=== PATIENT | male | born 1935 | race Caucasian/White ===

== ENCOUNTER 2019-01-10 03:15 | Emergency (ER) | payer MEDICARE, OTHER, MEDICAID ==
[2019-01-10] MEDS ORDERED: Albuterol/Ipratropium 3.0-0.5 MG/3 ML Neb Soln NEB ONE ×2 (03:38→05:02)
[2019-01-10] MEDS ORDERED: Furosemide 20 MG/2 ML VIAL IV ONE (03:39)
[2019-01-10] MEDS ORDERED: methylPREDNISolone Sodium Succinate 125 MG/2 ML SDV IVPUSH ONE (03:39)
--- NOTE | 2019-01-10 03:46 | EDM.PDOC ---
ED HPI GENERAL MEDICAL PROBLEM - General Chief Complaint: Respiratory Problem Stated Complaint: Dyspnea Time Seen by Provider: 01/10/19 03:30 Source of Information: Reports: Patient, EMS, EMS Notes Reviewed, RN History Limitations: Reports: No Limitations - History of Present Illness INITIAL COMMENTS - FREE TEXT/NARRATIVE: Patient comes in the emergency department with complaints of shortness of breath. Patient is a resident at the local intermediate. Patient does have oxygen concentrator on a normal basis and does need oxygen to help his oxygen saturations level greater than 90. Patient states over the course last 24 hours he's become more short of breath. He does have a history of becoming short of breath with exertion however he became short of breath with rest. He states that he's not been able lie flat because of becoming short of breath. He also states that he does have a productive wet cough. He denies any fever however nursing personnel at the intermediate state that he did have a fever earlier today of 101. She denies any chills, chest pain, dizziness, lightheaded, or nausea vomiting. Patient states that he is short of breath at rest; is unable to lie flat; has needed and increase oxygenation at the intermediate; and has swollen lower extremities. Onset: Gradual Location: Reports: Head Severity: Moderate Improves with: Reports: Immobilization, Other (sitting upright ) Worsens with: Reports: None Associated Symptoms: Reports: Shortness of Breath. Denies: Cough, Diaphoresis, Fever/Chills, Malaise, Nausea/Vomiting, Syncope, Weakness Treatments HEAD OF QUALITY: Reports: Oxygen, See EMS Report - Related Data Allergies Allergy/AdvReac Type Severity Reaction Status Date / Time No Known Allergies Allergy Verified 01/10/19 04:19 ED ROS GENERAL - Review of Systems Review Of Systems: See Below Constitutional: Reports: No Symptoms HEENT: Reports: No Symptoms Respiratory: Reports: Shortness of Breath, Wheezing. Denies: Pleuritic Chest Pain, Cough, Sputum Cardiovascular: Reports: Dyspnea on Exertion, Edema. Denies: Orthopnea, Palpitations Endocrine: Reports: No Symptoms GI/Abdominal: Reports: No Symptoms : Reports: No Symptoms Musculoskeletal: Reports: No Symptoms Skin: Reports: No Symptoms Neurological: Reports: No Symptoms Psychiatric: Reports: No Symptoms Hematologic/Lymphatic: Reports: No Symptoms Immunologic: Reports: No Symptoms ED EXAM, GENERAL - Physical Exam Exam: See Below Exam Limited By: Respiratory Distress General Appearance: Alert, Anxious, Mild Distress Eye Exam: Bilateral Eye: EOMI, PERRL Head: Atraumatic, Normocephalic Neck: Normal Inspection, Supple, Non-Tender, Full Range of Motion Respiratory/Chest: Respiratory Distress, Decreased Breath Sounds (left lower base ), Crackles, Wheezing, Accessory Muscle Use, Other Cardiovascular: Tachycardia GI/Abdominal: Normal Bowel Sounds, Soft, Non-Tender, No Distention Extremities: Pedal Edema, Slow Capillary Refill Neurological: Alert, Oriented Psychiatric: Normal Affect, Normal Mood Skin Exam: Warm, Dry, Intact, Normal Color Course - Vital Signs Last Recorded V/S: Last Vital Signs Temp 37.6 C 01/10/19 03:15 Pulse 105 H 01/10/19 03:15 Resp 32 H 01/10/19 03:15 BP 96/54 L 01/10/19 03:15 Pulse Ox 95 01/10/19 03:15 - Orders/Labs/Meds Orders: Active Orders 24 hr Category Date Time Status Cardiac Monitoring [RC] . DIRECTED Care 01/10/19 03:38 Active RT Aerosol Therapy [RC] ASDIRECTED Care 01/10/19 03:38 Active RT Aerosol Therapy [RC] ASDIRECTED Care 01/10/19 05:02 Ordered Chest 1V Frontal [CR] Stat Exams 01/10/19 03:39 Taken CULTURE BLOOD [BC] Stat Lab 01/10/19 04:15 Received CULTURE BLOOD [BC] Stat Lab 01/10/19 04:21 Received Albuterol/Ipratropium [DuoNeb 3.0-0.5 MG/3 ML] Med 01/10/19 05:02 Once 3 ml NEB ONETIME ONE Blood Culture x2 Reflex Set [OM.PC] Stat Oth 01/10/19 03:44 Ordered Labs: Laboratory Tests 01/10/19 01/10/19 01/10/19 Range/Units 04:15 04:15 04:15 WBC 18.1 H (4.0-10.0) x10^3/uL RBC 4.11 L (4.5-6.0) x10^6/uL Hgb 12.1 L (14.0-18.0) g/dL Hct 38.6 L (40.0-52.0) % MCV 93.9 H (78.0-93.0) fL MCH 29.4 (26.0-32.0) pg MCHC 31.3 L (32.0-36.0) g/dL RDW Coeff of Evan 14.9 (10.0-15.0) % Plt Count 232 (130-400) x10^3/uL Add Manual Diff Yes Neutrophils % (Manual) 86 H (50-80) % Band Neutrophils % 4 (0-6) % Lymphocytes % (Manual) 7 L (25-50) % Monocytes % (Manual) 3 (2-11) % Platelet Estimate Adequate Hypochromasia 1+ slight H Anisocytosis Rare Macrocytosis 1+ slight H Ovalocytes Rare Sodium 139 (136-145) mmol/L Potassium 4.6 (3.5-5.1) mmol/L Chloride 99 (98-107) mmol/L Carbon Dioxide 33 H (21-32) mmol/L Anion Gap 11.6 (10-20) mmol/L BUN 17 (7-18) mg/dL Creatinine 1.0 (0.70-1.30) mg/dL Est Cr Clr Drug Dosing TNP Estimated GFR (MDRD) > 60 Glucose 119 H (74-106) mg/dL Lactic Acid 1.1 (0.4-2.0) mmol/L Calcium 9.2 (8.5-10.1) mg/dL Corrected Calcium 10.32 H (8.5-10.1) mg/dL Total Bilirubin 1.0 (0.2-1.0) mg/dL AST 20 (15-37) U/L ALT 18 (16-63) U/L Alkaline Phosphatase 152 H (46-116) U/L Troponin I < 0.017 (<=0.056) ng/mL NT-Pro-B Natriuret Pep 3018 H (<=450) pg/mL Total Protein 6.8 (6.4-8.2) g/dL Albumin 2.6 L (3.4-5.0) g/dL Globulin 4.2 Albumin/Globulin Ratio 0.62 Meds: Medications Discontinued Medications Generic Name Dose Route Start Last Admin Trade Name Freq PRN Reason Stop Dose Admin Albuterol/Ipratropium 3 ml 01/10/19 03:38 01/10/19 03:50 Duoneb 3.0-0.5 Mg/3 Ml NEB 04/06/19 03:39 3 ml ONETIME ONE Administration Ceftriaxone Sodium 1 gm/ 0 gm 01/10/19 04:39 Lidocaine HCl 2.1 ml IM 01/10/19 04:40 ONETIME ONE Furosemide 20 mg 01/10/19 03:39 01/10/19 03:50 Lasix IV 01/10/19 03:40 20 mg ONETIME ONE Administration Methylprednisolone Sodium Succinate 125 mg 01/10/19 03:39 01/10/19 03:50 Solu-Medrol IVPUSH 01/10/19 03:40 125 mg ONETIME ONE Administration Departure - Departure Time of Disposition: 04:55 Disposition: DC/Tfer to Acute Hospital 02 Condition: Good Clinical Impression: SOB (shortness of breath) CHF (congestive heart failure) Qualifiers: Heart failure type: unspecified Heart failure chronicity: acute Qualified Code( s): I50.9 - Heart failure, unspecified Pneumothorax Qualifiers: Pneumothorax type: unspecified pneumothorax Qualified Code(s): J93.9 - Pneumothorax, unspecified - Discharge Information *PRESCRIPTION DRUG MONITORING PROGRAM REVIEWED*: Not Applicable *COPY OF PRESCRIPTION DRUG MONITORING REPORT IN PATIENT [place]: Not Applicable Referrals: Jordyn Mcmullen DO [Primary Care Provider] - Forms: ED Department Discharge, Interfacility Transfer EMTALA - My Orders Last 24 Hours: My Active Orders 01/10/19 03:38 Cardiac Monitoring [RC] . DIRECTED RT Aerosol Therapy [RC] ASDIRECTED 01/10/19 03:39 Chest 1V Frontal [CR] Stat 01/10/19 03:44 Blood Culture x2 Reflex Set [OM.PC] Stat 01/10/19 04:15 CULTURE BLOOD [BC] Stat 01/10/19 04:21 CULTURE BLOOD [BC] Stat 01/10/19 05:02 RT Aerosol Therapy [RC] ASDIRECTED Albuterol/Ipratropium [DuoNeb 3.0-0.5 MG/3 ML] 3 ml NEB ONETIME ONE - Assessment/Plan Last 24 Hours: My Active Orders 01/10/19 03:38 Cardiac Monitoring [RC] . DIRECTED RT Aerosol Therapy [RC] ASDIRECTED 01/10/19 03:39 Chest 1V Frontal [CR] Stat 01/10/19 03:44 Blood Culture x2 Reflex Set [OM.PC] Stat 01/10/19 04:15 CULTURE BLOOD [BC] Stat 01/10/19 04:21 CULTURE BLOOD [BC] Stat 01/10/19 05:02 RT Aerosol Therapy [RC] ASDIRECTED Albuterol/Ipratropium [DuoNeb 3.0-0.5 MG/3 ML] 3 ml NEB ONETIME ONE Assessment:: 1. SOB 2. Respiratory failure 3. Fluid overload Plan: 1. Labs completed in ER. Results reviewed with the patient 2. Xray completed in ER. Results reviewed with the patient 3. Duoneb and solu-medrol ordered in the ER for inspiratory and expiratory wheezing. Pt states he feels much better after the treatment 4. Lasix order for lower extremity edema and crackles at the bases 5. O2 to keep oxygen levels above 92%. Currently on 5L NC 6. EKG completed in ER. 7. Rocephin given in the ER 8. radiology contacted regarding left apical pneumothorax 22%. 9. [facility] contacted regarding transfer. Dr. Cruz hospitalist is willing to admit. 10. All questions and concerns addressed prior to discharge
[2019-01-10] MEDS ORDERED: cefTRIAXone 1 GM, Lidocaine 1% 2.1 ML IM ONE ×2 (04:39)
[2019-01-10 04:54] LABS: CHLORIDE,CL 99 mmol/L (98-107); SODIUM,NA 139 mmol/L (136-145)
[2019-01-10 04:55] LABS: ANION GAP 11.6 mmol/L (10-20)
[2019-01-10] MEDS ORDERED: cefTRIAXone 1 GM Vial IVPUSH ONE (05:44)
--- NOTE | 2019-01-10 15:35 | CR ---
[id number] RAD/RAD Chest PA or AP 1V EXAM: RAD Chest PA or AP 1V INDICATION: SHORT OF BREATH. COMPARISON: None. DISCUSSION: Cardiomediastinal silhouette is enlarged. There is a moderate-sized left pneumothorax with shift of the mediastinum to the right. Small right pleural effusion. IMPRESSION: Moderate-sized left-sided pneumothorax with shift of the mediastinum to the right. Initial report was called to the ordering provider at time of study. Ignacio Briceno DO 01/10/19 1533 Thank you for allowing us to participate in the care of your patient.
== END 2019-01-10 05:34 | disposition short-term general hospital (02) ==
LOC: VM.ED 03:15
DX: J96.90 Respiratory failure, unspecified, unspecified whether with hypoxia or hypercapnia (principal); E87.70 Fluid overload, unspecified; I50.9 Heart failure, unspecified; J93.9 Pneumothorax, unspecified
CPT/HCPCS: 36415; 71045; 80053; 83605; 83880; 84484; 85025; 87040; 93005; 96374; 96375; 99285; J0696; J1940; J2930; J7620-GY

== ENCOUNTER 2019-03-29 18:16 | Emergency (ER) | payer MEDICARE, OTHER, MEDICAID ==
[2019-03-29 19:30] LABS: CHLORIDE,CL 99 mmol/L (98-107); SODIUM,NA 143 mmol/L (136-145)
[2019-03-29 19:33] LABS: ANION GAP 6.9 mmol/L (10-20)
--- NOTE | 2019-03-29 19:37 | CR ---
[id number] RAD/RAD Chest Portable EXAM: RAD Chest Portable INDICATION: SOB COMPARISON: January 10, 2019. DISCUSSION: Cardiomediastinal silhouette is stable in size and contour. Left upper lobe pulmonary infiltrate is likely stable when compared to the prior as the lung has reexpanded. Hazy opacification overlying the right hemithorax is increased when compared to the prior study. This is nonspecific and could be infectious though confluent pulmonary edema is also in the differential. Small bilateral pleural effusions, increased. IMPRESSION: As above. Ignacio Briceno DO 03/29/19 1935 Thank you for allowing us to participate in the care of your patient.
[2019-03-29] MEDS ORDERED: Furosemide 40 MG/4 ML VIAL IV ONE (20:06)
--- NOTE | 2019-03-29 20:06 | EDM.PDOC ---
ED HPI GENERAL MEDICAL PROBLEM - General Chief Complaint: Cardiovascular Problem Stated Complaint: ER Time Seen by Provider: 03/29/19 18:38 Source of Information: Reports: Patient, [facility] Records History Limitations: Reports: No Limitations - History of Present Illness INITIAL COMMENTS - FREE TEXT/NARRATIVE: Patient arrives from care center with complaints of lower extremity edema, pitting, and redness. No other complaints. Has history a-fib, takes coumadin. Additional history includes COPD, CHF. Has been on 5L oxygen which is above the ordered 2-4L per Dr. Mcmullen. Denies chest pain, no new shortness of breath , no nausea or vomiting or abdominal pain. Denies blood in urine or stool, no diarrhea or urinary symptoms. No headache, neck ache or back ache. Lasix was increased Saturday to twice daily. Onset: Gradual Duration: Getting Worse Location: Reports: Lower Extremity, Left, Lower Extremity, Right Quality: Reports: Pressure Severity: Moderate Associated Symptoms: Reports: No Other Symptoms - Related Data Allergies Allergy/AdvReac Type Severity Reaction Status Date / Time No Known Allergies Allergy Verified 03/29/19 19:59 Home Meds: Home Meds Albuterol Sulfate [Albuterol Sulfate Hfa] 1 puff IH Q4HR PRN 01/11/19 [History] Diltiazem [Cardizem CD] 120 mg PO DAILY 01/11/19 [History] Fluticasone/Salmeterol [Advair 250-50 Diskus] 1 each IH BID 01/11/19 [History] Furosemide [Lasix] 60 mg PO DAILY 01/11/19 [History] Warfarin Sodium [Coumadin] 3.75 mg PO DAILY 01/11/19 [History] Acetaminophen 1 tab PO Q6H PRN 03/29/19 [History] Metoprolol Tartrate 12.5 mg PO BID 03/29/19 [History] Umeclidinium Saucier [Incruse Ellipta*] 1 puff INH DAILY 03/29/19 [History] Warfarin Sodium 1 tab PO ASDIRECTED 03/29/19 [History] guaiFENesin [Mucinex] 1 tab PO BID 03/29/19 [History] Past Medical History Cardiovascular History: Reports: Afib, SOB on Exertion Other Cardiovascular History: Edema Respiratory History: Reports: COPD, SOB Other Respiratory History: Emphysema; Antiphospholipid; Pulmonary Embolism without Acute Cor Pulmonale; Solitary Pulmonary Nodule. Oxygen dependent with a nasal canula at 4L Gastrointestinal History: Reports: Other (See Below) Other Gastrointestinal History: Activated Protein C Resistance Other Musculoskeletal History: Generalized Weakness Psychiatric History: Reports: Anxiety ED ROS GENERAL - Review of Systems Review Of Systems: See Below Constitutional: Reports: No Symptoms HEENT: Reports: No Symptoms Respiratory: Reports: No Symptoms Cardiovascular: Reports: No Symptoms Endocrine: Reports: No Symptoms GI/Abdominal: Reports: No Symptoms : Reports: No Symptoms Musculoskeletal: Reports: No Symptoms Skin: Reports: Erythema Neurological: Reports: No Symptoms Psychiatric: Reports: No Symptoms Hematologic/Lymphatic: Reports: No Symptoms Immunologic: Reports: No Symptoms ED EXAM, GENERAL - Physical Exam Exam: See Below Exam Limited By: No Limitations General Appearance: Alert, WD/WN, No Apparent Distress Eye Exam: Bilateral Eye: EOMI, Normal Inspection Ears: Normal TMs Nose: Normal Inspection, Normal Mucosa, No Blood Throat/Mouth: Normal Inspection, Normal Lips, Normal Teeth, Normal Gums, Normal Oropharynx, Normal Voice, No Airway Compromise Head: Atraumatic, Normocephalic Neck: Normal Inspection, Supple, Non-Tender, Full Range of Motion Respiratory/Chest: No Respiratory Distress, Lungs Clear, Normal Breath Sounds, No Accessory Muscle Use, Chest Non-Tender Cardiovascular: No Murmur, Irregularly Irregular GI/Abdominal: Normal Bowel Sounds, Soft, Non-Tender, No Organomegaly, No Distention, No Abnormal Bruit, No Mass Extremities: Pedal Edema (4+, pitting with minimal weeping) Neurological: Alert, Oriented, CN II-XII Intact, Normal Cognition, Normal Gait, Normal Reflexes, No Motor/Sensory Deficits Psychiatric: Normal Affect, Normal Mood Skin Exam: Warm, Dry, Intact, Normal Color, No Rash Lymphatic: No Adenopathy Course - Vital Signs Last Recorded V/S: Last Vital Signs Temp 37.3 C 03/29/19 18:35 Pulse 76 03/29/19 18:35 Resp 36 H 03/29/19 18:35 BP 108/69 03/29/19 18:35 Pulse Ox 94 L 03/29/19 18:35 - Orders/Labs/Meds Orders: Active Orders 24 hr Category Date Time Status EKG 12 Lead [EKG Documentation Completion] [RC] STAT Care 03/29/19 18:38 Active Labs: Laboratory Tests 03/29/19 03/29/19 03/29/19 Range/Units 18:50 18:50 18:50 WBC 8.1 (4.0-10.0) x10^3/uL RBC 3.77 L (4.5-6.0) x10^6/uL Hgb 10.9 L (14.0-18.0) g/dL Hct 35.8 L (40.0-52.0) % MCV 95.0 H (78.0-93.0) fL MCH 28.9 (26.0-32.0) pg MCHC 30.4 L (32.0-36.0) g/dL RDW Coeff of Evan 14.9 (10.0-15.0) % Plt Count 235 (130-400) x10^3/uL Add Manual Diff Yes Neutrophils % (Manual) 69 (50-80) % Lymphocytes % (Manual) 21 L (25-50) % Monocytes % (Manual) 6 (2-11) % Eosinophils % (Manual) 2 (0-4) % Metamyelocytes % 1 H (0) % Myelocytes % 1 H (0) % Platelet Estimate Adequate PT 41.9 H (10.0-12.8) SEC INR 3.7 H (2.0-3.5) Sodium 143 (136-145) mmol/L Potassium 3.9 (3.5-5.1) mmol/L Chloride 99 (98-107) mmol/L Carbon Dioxide 41 H (21-32) mmol/L Anion Gap 6.9 L (10-20) mmol/L BUN 17 (7-18) mg/dL Creatinine 1.0 (0.70-1.30) mg/dL Est Cr Clr Drug Dosing TNP Estimated GFR (MDRD) > 60 Glucose 95 (74-106) mg/dL Calcium 8.4 L (8.5-10.1) mg/dL Corrected Calcium 9.68 (8.5-10.1) mg/dL Total Bilirubin 0.4 (0.2-1.0) mg/dL AST 18 (15-37) U/L ALT 14 L (16-63) U/L Alkaline Phosphatase 137 H (46-116) U/L Troponin I < 0.017 (<=0.056) ng/mL NT-Pro-B Natriuret Pep 1876 H (<=450) pg/mL Total Protein 6.5 (6.4-8.2) g/dL Albumin 2.4 L (3.4-5.0) g/dL Globulin 4.1 Albumin/Globulin Ratio 0.59 TSH, Ultra Sensitive 4.567 H (0.358-3.74) uIU/mL Urine Color (YELLOW) Urine Appearance (CLEAR) Urine pH (5.0-8.0) Ur Specific Ava Urine Protein (NEGATIVE) mg/dL Urine Glucose (UA) (NEGATIVE) mg/dL Urine Ketones (NEGATIVE) mg/dL Urine Occult Blood (NEGATIVE) Urine Nitrite (NEGATIVE) Urine Bilirubin (NEGATIVE) Urine Urobilinogen (0.2) EU/dL Ur Leukocyte Esterase (NEGATIVE) Urine RBC (NOT SEEN) /HPF Urine WBC (NOT SEEN) /HPF Urine Mucus (NEGATIVE) /LPF 03/29/19 Range/Units 19:00 WBC (4.0-10.0) x10^3/uL RBC (4.5-6.0) x10^6/uL Hgb (14.0-18.0) g/dL Hct (40.0-52.0) % MCV (78.0-93.0) fL MCH (26.0-32.0) pg MCHC (32.0-36.0) g/dL RDW Coeff of Evan (10.0-15.0) % Plt Count (130-400) x10^3/uL Add Manual Diff Neutrophils % (Manual) (50-80) % Lymphocytes % (Manual) (25-50) % Monocytes % (Manual) (2-11) % Eosinophils % (Manual) (0-4) % Metamyelocytes % (0) % Myelocytes % (0) % Platelet Estimate PT (10.0-12.8) SEC INR (2.0-3.5) Sodium (136-145) mmol/L Potassium (3.5-5.1) mmol/L Chloride (98-107) mmol/L Carbon Dioxide (21-32) mmol/L Anion Gap (10-20) mmol/L BUN (7-18) mg/dL Creatinine (0.70-1.30) mg/dL Est Cr Clr Drug Dosing Estimated GFR (MDRD) Glucose (74-106) mg/dL Calcium (8.5-10.1) mg/dL Corrected Calcium (8.5-10.1) mg/dL Total Bilirubin (0.2-1.0) mg/dL AST (15-37) U/L ALT (16-63) U/L Alkaline Phosphatase (46-116) U/L Troponin I (<=0.056) ng/mL NT-Pro-B Natriuret Pep (<=450) pg/mL Total Protein (6.4-8.2) g/dL Albumin (3.4-5.0) g/dL Globulin Albumin/Globulin Ratio TSH, Ultra Sensitive (0.358-3.74) uIU/mL Urine Color Yellow (YELLOW) Urine Appearance Clear (CLEAR) Urine pH 7.0 (5.0-8.0) Ur Specific Ava 1.015 Urine Protein Negative (NEGATIVE) mg/dL Urine Glucose (UA) Negative (NEGATIVE) mg/dL Urine Ketones Negative (NEGATIVE) mg/dL Urine Occult Blood Negative (NEGATIVE) Urine Nitrite Negative (NEGATIVE) Urine Bilirubin Negative (NEGATIVE) Urine Urobilinogen 0.2 (0.2) EU/dL Ur Leukocyte Esterase Negative (NEGATIVE) Urine RBC 0-5 (NOT SEEN) /HPF Urine WBC Not seen (NOT SEEN) /HPF Urine Mucus Rare H (NEGATIVE) /LPF Departure - Departure Time of Disposition: 20:45 Disposition: DC/Tfer to SNF 03 Reason for Transfer *Q: Other Condition: Good Clinical Impression: Bilateral lower extremity edema Instructions: Edema, Duls-er-[id number] Referrals: Jordyn Mcmullen DO [Primary Care Provider] - Additional Instructions: Plan 1. Discussed plan with Dr. Mcmullen. Start oral lasix at 80 mg in the AM, 40 mg at noon. Start this Saturday and give through Saturday. Care center to call and update Cordell Lilli at the [facility] on Saturday. 2. You need to sit with your legs elevated, not down. Sitting with your legs DOWN increases how much they swell. 3. DO NOT go over 4L oxygen for him. This will decrease his respiratory drive. 4. Call with any questions or concerns. ED Communication - ED Communication Date/Time Date: 03/29/19 Time Called: 20:15 - Discussed Case With (1) Discussed Case With (1): Other Provider (Discussed with Dr. Mcmullen. Orders received and patient to be sent back to care center) - Problem List & Annotations (1) Bilateral lower extremity edema SNOMED Code(s): 117827585, 21792970, 101486349 Code(s): R60.0 - LOCALIZED EDEMA Status: Acute Priority: Medium Current Visit: Yes - Problem List Review Problem List Initiated/Reviewed/Updated: Yes - My Orders Last 24 Hours: My Active Orders 03/29/19 18:38 EKG 12 Lead [EKG Documentation Completion] [RC] STAT - Assessment/Plan Last 24 Hours: My Active Orders 03/29/19 18:38 EKG 12 Lead [EKG Documentation Completion] [RC] STAT Assessment:: bilateral lower extremity edema Plan: Plan 1. Discussed plan with Dr. Mcmullen. Start oral lasix at 80 mg in the AM, 40 mg at noon. Start this Saturday and give through Saturday. Care center to call and update Cordell Reeder at the [facility] on Saturday. 2. You need to sit with your legs elevated, not down. Sitting with your legs DOWN increases how much they swell. 3. DO NOT go over 4L oxygen for him. This will decrease his respiratory drive. 4. Call with any questions or concerns.
== END 2019-03-29 20:42 ==
LOC: VM.ED 18:16
DX: R60.0 Localized edema (principal); Z79.01 Long term (current) use of anticoagulants; Z79.899 Other long term (current) drug therapy
CPT/HCPCS: 36415; 71045; 80053; 81001; 83880; 84443; 84484; 85025; 85610; 93005; 96374; 99284-GF; 99285-25; J1940

== ENCOUNTER 2019-04-25 08:14 | Inpatient (IN) | payer MEDICARE, OTHER, MEDICAID ==
[2019-04-25] MEDS ORDERED: Sodium Chloride 0.9% 10 ML Syringe FLUSH PRN (08:24)
[2019-04-25] MEDS ORDERED: cefTRIAXone 1 GM Vial IVPUSH ONE (08:25)
[2019-04-25] MEDS ORDERED: Albuterol/Ipratropium 3.0-0.5 MG/3 ML Neb Soln NEB ONE (08:27)
[2019-04-25] MEDS ORDERED: Furosemide 40 MG/4 ML VIAL IV ONE ×2 (08:31→12:45)
--- NOTE | 2019-04-25 08:53 | EDM.PDOC ---
ED HPI GENERAL MEDICAL PROBLEM - General Chief Complaint: General Stated Complaint: FEVER Time Seen by Provider: 04/25/19 08:20 Source of Information: Reports: Patient History Limitations: Reports: No Limitations, Respiratory Distress - History of Present Illness INITIAL COMMENTS - FREE TEXT/NARRATIVE: Patient comes in to the emergency department with complaint of shortness of breath. Patient is on home O2 however they did turn up to 5 L. In continue to have shortness of breath. His patient half-way they stated his increase of work of breathing began this morning. He also had chills this morning and could not get warm. He has had a cough as well. He denies any pain. EMS was contacted to provide transport. They had found patient to be breathing in the 40's. They did give a breathing treatment prior to arrival and the patient felt he had some relief. Patient denies any other concerns or complaints. Onset: Gradual Quality: Reports: Other Improves with: Reports: None Worsens with: Reports: None Associated Symptoms: Reports: cough w sputum - Related Data Allergies Allergy/AdvReac Type Severity Reaction Status Date / Time No Known Allergies Allergy Verified 04/25/19 10:07 Home Meds: Home Meds Albuterol Sulfate [Albuterol Sulfate Hfa] 2 puff IH Q6H PRN 01/11/19 [History] Diltiazem [Cardizem CD] 120 mg PO DAILY 01/11/19 [History] Fluticasone/Salmeterol [Advair 250-50 Diskus] 1 each IH BID 01/11/19 [History] Furosemide [Lasix] 40 mg PO DAILY 01/11/19 [History] Warfarin Sodium [Coumadin] 3.75 mg PO ASDIRECTED 01/11/19 [History] Acetaminophen 500 mg PO Q6H PRN 03/29/19 [History] Metoprolol Tartrate 12.5 mg PO BID 03/29/19 [History] Umeclidinium [place] [Incruse Ellipta*] 1 puff INH DAILY 03/29/19 [History] Warfarin Sodium 2.5 mg PO ASDIRECTED 03/29/19 [History] guaiFENesin [Mucinex] 600 mg PO BID 03/29/19 [History] Multivitamin [Multi-Vitamin Daily] 1 each PO DAILY 04/25/19 [History] Past Medical History Cardiovascular History: Reports: Afib, SOB on Exertion Other Cardiovascular History: Edema Respiratory History: Reports: COPD, SOB Other Respiratory History: Emphysema; Antiphospholipid; Pulmonary Embolism without Acute Cor Pulmonale; Solitary Pulmonary Nodule. 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 Constitutional: Reports: Chills, Malaise, Weakness HEENT: Reports: No Symptoms Respiratory: Reports: Shortness of Breath, Cough Cardiovascular: Reports: Dyspnea on Exertion, Edema Endocrine: Reports: No Symptoms GI/Abdominal: Reports: No Symptoms : Reports: No Symptoms Musculoskeletal: Reports: No Symptoms Skin: Reports: No Symptoms Neurological: Reports: No Symptoms Psychiatric: Reports: No Symptoms Hematologic/Lymphatic: Reports: No Symptoms ED EXAM, GENERAL - Physical Exam Exam: See Below Exam Limited By: No Limitations General Appearance: Alert, WD/WN, Moderate Distress Head: Atraumatic, Normocephalic Neck: Normal Inspection, Supple, Non-Tender, Full Range of Motion Respiratory/Chest: Respiratory Distress, Decreased Breath Sounds, Crackles Cardiovascular: Normal Peripheral Pulses, Tachycardia GI/Abdominal: Normal Bowel Sounds, Soft, Non-Tender, No Distention, No Abnormal Bruit Back Exam: Normal Inspection, Full Range of Motion Extremities: Normal Inspection, Normal Range of Motion, Non-Tender, Slow Capillary Refill (moderate swelling) Neurological: Alert, Oriented Psychiatric: Normal Affect, Normal Mood Skin Exam: Warm, Dry, Intact, Normal Color Course - Vital Signs Last Recorded V/S: Last Vital Signs Temp 36.6 C 04/25/19 13:06 Pulse 74 04/25/19 13:06 Resp 28 H 04/25/19 13:06 BP 93/58 L 04/25/19 13:06 Pulse Ox 97 04/25/19 13:06 - Orders/Labs/Meds Orders: Active Orders 24 hr Category Date Time Status BIPAP Adult [RT BiPAP/CPAP] [RC] ASDIRECTED Care 04/25/19 09:53 Active EKG Documentation Completion [RC] STAT Care 04/25/19 08:24 Active Oxygen Therapy, ED [RC] ASDIRECTED Care 04/25/19 09:53 Active RT Aerosol Therapy [RC] ASDIRECTED Care 04/25/19 08:29 Active CULTURE BLOOD [BC] Stat Lab 04/25/19 08:25 Received CULTURE BLOOD [BC] Stat Lab 04/25/19 08:52 Received Blood Culture x2 Reflex Set [OM.PC] Stat Oth 04/25/19 08:24 Ordered Peripheral IV Insertion Adult [OM.PC] Stat Oth 04/25/19 08:24 Ordered Labs: Laboratory Tests 04/25/19 04/25/19 04/25/19 Range/Units 08:25 08:25 08:25 WBC 15.3 H (4.0-10.0) x10^3/uL RBC 3.93 L (4.5-6.0) x10^6/uL Hgb 11.3 L (14.0-18.0) g/dL Hct 36.9 L (40.0-52.0) % MCV 93.9 H (78.0-93.0) fL MCH 28.8 (26.0-32.0) pg MCHC 30.6 L (32.0-36.0) g/dL RDW Coeff of Evan 14.7 (10.0-15.0) % Plt Count 221 (130-400) x10^3/uL Add Manual Diff Yes Neutrophils % (Manual) 81 H (50-80) % Band Neutrophils % 6 (0-6) % Lymphocytes % (Manual) 5 L (25-50) % Monocytes % (Manual) 6 (2-11) % Eosinophils % (Manual) 2 (0-4) % Hypersegmented Neuts Rare H Vacuolated Monocytes Rare Toxic Granulation 1+ slight H Platelet Estimate Adequate Hypochromasia 1+ slight H Macrocytosis 1+ slight H Ovalocytes 1+ slight H Stomatocytes 1+ slight H PT (10.0-12.8) SEC INR (2.0-3.5) Sodium 141 (136-145) mmol/L Potassium 4.1 (3.5-5.1) mmol/L Chloride 98 (98-107) mmol/L Carbon Dioxide 38 H (21-32) mmol/L Anion Gap 9.1 L (10-20) mmol/L BUN 14 (7-18) mg/dL Creatinine 1.1 (0.70-1.30) mg/dL Est Cr Clr Drug Dosing TNP Estimated GFR (MDRD) > 60 Glucose 108 H (74-106) mg/dL Lactic Acid 1.0 (0.4-2.0) mmol/L Calcium 8.7 (8.5-10.1) mg/dL Corrected Calcium 9.82 (8.5-10.1) mg/dL Total Bilirubin 0.7 (0.2-1.0) mg/dL AST 20 (15-37) U/L ALT 14 L (16-63) U/L Alkaline Phosphatase 133 H (46-116) U/L Creatine Kinase 36 L (39-308) U/L Troponin I < 0.017 (<=0.056) ng/mL NT-Pro-B Natriuret Pep 2455 H (<=450) pg/mL Total Protein 6.9 (6.4-8.2) g/dL Albumin 2.6 L (3.4-5.0) g/dL Globulin 4.3 Albumin/Globulin Ratio 0.60 Urine Color (YELLOW) Urine Appearance (CLEAR) Urine pH (5.0-8.0) Ur Specific [place] Urine Protein (NEGATIVE) mg/dL Urine Glucose (UA) (NEGATIVE) mg/dL Urine Ketones (NEGATIVE) mg/dL Urine Occult Blood (NEGATIVE) Urine Nitrite (NEGATIVE) Urine Bilirubin (NEGATIVE) Urine Urobilinogen (0.2) EU/dL Ur Leukocyte Esterase (NEGATIVE) 04/25/19 04/25/19 Range/Units 08:25 09:50 WBC (4.0-10.0) x10^3/uL RBC (4.5-6.0) x10^6/uL Hgb (14.0-18.0) g/dL Hct (40.0-52.0) % MCV (78.0-93.0) fL MCH (26.0-32.0) pg MCHC (32.0-36.0) g/dL RDW Coeff of Evan (10.0-15.0) % Plt Count (130-400) x10^3/uL Add Manual Diff Neutrophils % (Manual) (50-80) % Band Neutrophils % (0-6) % Lymphocytes % (Manual) (25-50) % Monocytes % (Manual) (2-11) % Eosinophils % (Manual) (0-4) % Hypersegmented Neuts Vacuolated Monocytes Toxic Granulation Platelet Estimate Hypochromasia Macrocytosis Ovalocytes Stomatocytes PT 24.0 H D (10.0-12.8) SEC INR 2.1 (2.0-3.5) Sodium (136-145) mmol/L Potassium (3.5-5.1) mmol/L Chloride (98-107) mmol/L Carbon Dioxide (21-32) mmol/L Anion Gap (10-20) mmol/L BUN (7-18) mg/dL Creatinine (0.70-1.30) mg/dL Est Cr Clr Drug Dosing Estimated GFR (MDRD) Glucose (74-106) mg/dL Lactic Acid (0.4-2.0) mmol/L Calcium (8.5-10.1) mg/dL Corrected Calcium (8.5-10.1) mg/dL Total Bilirubin (0.2-1.0) mg/dL AST (15-37) U/L ALT (16-63) U/L Alkaline Phosphatase (46-116) U/L Creatine Kinase (39-308) U/L Troponin I (<=0.056) ng/mL NT-Pro-B Natriuret Pep (<=450) pg/mL Total Protein (6.4-8.2) g/dL Albumin (3.4-5.0) g/dL Globulin Albumin/Globulin Ratio Urine Color Dark yellow H (YELLOW) Urine Appearance Clear (CLEAR) Urine pH 7.0 (5.0-8.0) Ur Specific [place] 1.015 Urine Protein Negative (NEGATIVE) mg/dL Urine Glucose (UA) Negative (NEGATIVE) mg/dL Urine Ketones Negative (NEGATIVE) mg/dL Urine Occult Blood Negative (NEGATIVE) Urine Nitrite Negative (NEGATIVE) Urine Bilirubin Negative (NEGATIVE) Urine Urobilinogen 0.2 (0.2) EU/dL Ur Leukocyte Esterase Negative (NEGATIVE) Meds: Medications Discontinued Medications Generic Name Dose Route Start Last Admin Trade Name Freq PRN Reason Stop Dose Admin Albuterol/Ipratropium 3 ml 04/25/19 08:27 04/25/19 09:07 Duoneb 3.0-0.5 Mg/3 Ml NEB 04/25/19 08:28 3 ml ONETIME ONE Administration Albuterol/Ipratropium 3 ml 04/25/19 12:00 04/25/19 12:11 Duoneb 3.0-0.5 Mg/3 Ml NEB 04/28/19 23:59 3 ml Q3HR JOE Administration Ceftriaxone Sodium 1 gm 04/25/19 08:25 04/25/19 09:07 Rocephin IVPUSH 04/25/19 08:26 1 gm ONETIME ONE Administration Furosemide 40 mg 04/25/19 08:31 04/25/19 09:03 Lasix IV 04/25/19 08:32 40 mg ONETIME ONE Administration Furosemide 40 mg 04/25/19 11:45 Lasix IV Q8H JOE Furosemide 40 mg 04/25/19 12:45 04/25/19 13:19 Lasix IV 04/25/19 12:46 40 mg ONETIME ONE Administration Hydrocortisone Sodium Succinate 250 mg 04/25/19 12:00 04/25/19 12:11 Solu-Cortef IVPUSH 250 mg Q8H JOE Administration Vancomycin HCl 1,462.83 mg/ 250 mls @ 166.667 mls/hr 04/25/19 12:00 Sodium Chloride IV Q12H JOE Vancomycin HCl 1,500 mg/ 250 mls @ 166.667 mls/hr 04/25/19 13:00 Sodium Chloride IV 04/25/19 14:29 ONETIME ONE Vancomycin HCl 1,500 mg/ 500 mls @ 333.333 mls/hr 04/25/19 13:00 04/25/19 13: 35 Sodium Chloride IV 04/25/19 14:29 Not Given ONETIME ONE Vancomycin HCl 1,500 mg/ 250 mls @ 166.667 mls/hr 04/25/19 13:15 04/25/19 13: 20 Sodium Chloride IV 04/25/19 14:44 166.667 mls/hr ONETIME ONE Administration Sodium Chloride 10 ml 04/25/19 08:24 Saline Flush FLUSH ASDIRECTED PRN Keep Vein Open Departure - Departure Time of Disposition: 14:05 Disposition: Admitted As Inpatient 66 Condition: Poor Clinical Impression: SOB (shortness of breath) Respiratory failure Qualifiers: Chronicity: acute Respiratory failure complication: hypoxia and hypercapnia Qualified Code(s): J96.01 - Acute respiratory failure with hypoxia; J96.02 - Acute respiratory failure with hypercapnia Sepsis Qualifiers: Sepsis type: sepsis due to unspecified organism Qualified Code(s): A41.9 - Sepsis, unspecified organism - Discharge Information *PRESCRIPTION DRUG MONITORING PROGRAM REVIEWED*: Not Applicable *COPY OF PRESCRIPTION DRUG MONITORING REPORT IN PATIENT [place]: Not Applicable - Problem List Review Problem List Initiated/Reviewed/Updated: Yes - My Orders Last 24 Hours: My Active Orders 04/25/19 08:24 EKG Documentation Completion [RC] STAT Blood Culture x2 Reflex Set [OM.PC] Stat Peripheral IV Insertion Adult [OM.PC] Stat 04/25/19 08:25 CULTURE BLOOD [BC] Stat 04/25/19 08:29 RT Aerosol Therapy [RC] ASDIRECTED 04/25/19 08:52 CULTURE BLOOD [BC] Stat 04/25/19 09:53 BIPAP Adult [RT BiPAP/CPAP] [RC] ASDIRECTED Oxygen Therapy, ED [RC] ASDIRECTED - Assessment/Plan Last 24 Hours: My Active Orders 04/25/19 08:24 EKG Documentation Completion [RC] STAT Blood Culture x2 Reflex Set [OM.PC] Stat Peripheral IV Insertion Adult [OM.PC] Stat 04/25/19 08:25 CULTURE BLOOD [BC] Stat 04/25/19 08:29 RT Aerosol Therapy [RC] ASDIRECTED 04/25/19 08:52 CULTURE BLOOD [BC] Stat 04/25/19 09:53 BIPAP Adult [RT BiPAP/CPAP] [RC] ASDIRECTED Oxygen Therapy, ED [RC] ASDIRECTED Assessment:: 1. SOB 2. Respiratory distress with failure 3. Sepsis protocol-fever, chills, Plan: 1. Labs and UA completed in ER. results reviewed 2. X-ray completed in ER. results reviewed 3. Sepsis protocol completed 4. Rocephin 1gm IV given 5. Duoneb provided 6. Lasix IV given 7. Bipap was inititated to help with breathing 8. Pt is a patient of [facility]. Both providers are unavailable today. Will admit patient under acute care with Dr. Warner this weekend and anticipate transfer to [facility] provider on Saturday 9. Patient is resting much better with the above interventions. He is adamant he does not want to be transferred to a higher level of care. He will be admitted acute care, Code II. 10. All questions and concerns were addressed prior to the patient being admitted.
[2019-04-25 09:16] LABS: CHLORIDE,CL 98 mmol/L (98-107); SODIUM,NA 141 mmol/L (136-145)
[2019-04-25 09:17] LABS: ANION GAP 9.1 mmol/L (10-20)
--- NOTE | 2019-04-25 09:55 | CR ---
[id number] RAD/RAD Chest PA or AP 1V EXAM: FRONTAL CHEST INDICATION: Shortness of breath. COMPARISON: March 29, 2019. DISCUSSION: The heart is mildly enlarged. Bilateral interstitial opacities suggest mild congestive heart failure. Small bilateral pleural effusions are stable. An 8.5 cm left upper lobe mass appears slightly increased in size. IMPRESSION: 1. Mild congestive heart failure. 2. An apparent increase in the left upper lobe mass may relate to positioning/magnification rather than a true change. Gordo Arndt MD 04/25/19 0955 Thank you for allowing us to participate in the care of your patient.
[2019-04-25] MEDS ORDERED: Furosemide 40 MG/4 ML VIAL IV SCH (11:45)
[2019-04-25] MEDS ORDERED: SODIUM CHLORIDE 0.9% IV SCH (12:00)
[2019-04-25] MEDS ORDERED: Hydrocortisone Sodium Succinate 100 MG/2 ML SDV IVPUSH SCH (12:00)
[2019-04-25] MEDS ORDERED: VANCOMYCIN IV SCH (12:00)
[2019-04-25] MEDS ORDERED: Albuterol/Ipratropium 3.0-0.5 MG/3 ML Neb Soln NEB SCH (12:00)
--- NOTE | 2019-04-25 13:28 | PCM.HP ---
H&P History of Present Illness - General Date of Service: 04/25/19 Admit Problem/Dx: Admission Diagnosis/Problem Admission Diagnosis/Problem Respiratory failure with hypercapnia Source of Information: Patient History Limitations: Reports: No Limitations - History of Present Illness Initial Comments - Free Text/Narative: cc: sob and fever for12 hours Pt has resided at [facility] for 18 months and has been doing" ok" there. He has a hx of COPD, emphysema, Pulmonary embolus with hypercoagulation syndrome, atrial fibrillation and spontaneous pneumothorax treated at [place] in January this year. He was also treated ro a pnuemonia. {t was seen in ER March 2019 with leg edema and was sent back to [facility] with increased lasix and leg wraps. Pt states his beating has been ok and leg edema has not really improved. From [facility] notes and [facility] clinic notes, it appear pt has sats of 88-91 on 2-4 liters of O2/ minute and retains CO2 at higher levels of FIO2. Pt was also positive for MRSA, Pt denies any chest pain,tachycardia, cough. just acute onset of SOB and fever.Pt;as temp was 1o1.0 at [facility] and they hfelt the need to increase his FIO2 to 5 l/pm ADvair 250/50 BID Alboterul 6 6 prn PMH: COPD SHARRI nodule- [t henning snot want this addresses COPD Emphysema PTX CHF and selina pl effusions seen on xray for the past severl amonths Leg edema Buttock skin breakdown SOCial HX; Pt is in [facility]< his son Steve is administrative representative at [employer] Habits: former smoker, not smoking or drinking now ALL: none known MEDS:Advir 250/50 BID Albuterol q6 prn Coumadin 2.5 5 times week, 3.75 2 times week Diltazem 120 qd Ellpita qd Lasix 40 qd Metoprolol 12.5 BID 02 2-4 liter pmin Desitin prn and silicone patch change every 3 days to left buttock ROS: GEN: fever yesterday RESP: SOB yesterday, limited in walking because of SOB and leg swelling CVS: no chest pain irregular heart beat GI: NO nausea, vomiting, diarrhea, constipation, pain ; No dysuria or back pain [employer]: NO headache syncope, dizziness - Related Data Allergies/Adverse Reactions: Allergies Allergy/AdvReac Type Severity Reaction Status Date / Time No Known Allergies Allergy Verified 04/25/19 10:07 Home Medications: Home Meds Albuterol Sulfate [Albuterol Sulfate Hfa] 2 puff IH Q6H PRN 01/11/19 [History] Diltiazem [Cardizem CD] 120 mg PO DAILY 01/11/19 [History] Fluticasone/Salmeterol [Advair 250-50 Diskus] 1 each IH BID 01/11/19 [History] Furosemide [Lasix] 40 mg PO DAILY 01/11/19 [History] Warfarin Sodium [Coumadin] 3.75 mg PO ASDIRECTED 01/11/19 [History] Acetaminophen 500 mg PO Q6H PRN 03/29/19 [History] Metoprolol Tartrate 12.5 mg PO BID 03/29/19 [History] Umeclidinium [place] [Incruse Ellipta*] 1 puff INH DAILY 03/29/19 [History] Warfarin Sodium 2.5 mg PO ASDIRECTED 03/29/19 [History] guaiFENesin [Mucinex] 600 mg PO BID 03/29/19 [History] Multivitamin [Multi-Vitamin Daily] 1 each PO DAILY 04/25/19 [History] Past Medical History Cardiovascular History: Reports: Afib, SOB on Exertion Other Cardiovascular History: Edema Respiratory History: Reports: COPD, SOB Other Respiratory History: Emphysema; Antiphospholipid; Pulmonary Embolism without Acute Cor Pulmonale; Solitary Pulmonary Nodule. Oxygen dependent with a nasal canula at 4L Gastrointestinal History: Reports: Other (See Below) Other Gastrointestinal History: Activated Protein C Resistance Other Musculoskeletal History: Generalized Weakness Psychiatric History: Reports: Anxiety Social & Family History - Tobacco Use Smoking Status *Q: Former Smoker Used Tobacco, but Quit: Yes Month/Year Tobacco Last Used: 2015 H&P Review of Systems - Review of Systems: Review Of Systems: See Below Exam - Exam Exam: See Below - Vital Signs Vital Signs: Last Vital Signs Temp 100.3 F 04/25/19 08:20 Pulse 105 H 04/25/19 10:05 Resp 40 H 04/25/19 10:05 BP 93/47 L 04/25/19 10:05 Pulse Ox 92 L 04/25/19 10:05 Weight: 215 lb - Exam General: Alert (oriented times 3) HEENT: Conjunctiva Clear Neck: Supple Lungs: Crackles (wheezing both upper lobes. rales at both bases; RR in ER was 40 ) Cardiovascular: Normal S1, Normal S2, Irregular Rhythm GI/Abdominal Exam: Normal Bowel Sounds, No Distention Back Exam: Other (scar midline; skin breakdown leftt buttoack, right buttock, right groin) Extremities: Other (3+ edema) Skin: Ecchymosis (arms) Neurological: Cranial Nerves Intact Neuro Extensive - Mental Status: Alert, Oriented x3 - Patient Data Lab Results Last 24 hrs: Laboratory Results - last 24 hr 04/25/19 04/25/19 04/25/19 Range/Units 08:25 08:25 08:25 WBC 15.3 H (4.0-10.0) x10^3/uL RBC 3.93 L (4.5-6.0) x10^6/uL Hgb 11.3 L (14.0-18.0) g/dL Hct 36.9 L (40.0-52.0) % MCV 93.9 H (78.0-93.0) fL MCH 28.8 (26.0-32.0) pg MCHC 30.6 L (32.0-36.0) g/dL RDW Coeff of Evan 14.7 (10.0-15.0) % Plt Count 221 (130-400) x10^3/uL Add Manual Diff Yes Neutrophils % (Manual) 81 H (50-80) % Band Neutrophils % 6 (0-6) % Lymphocytes % (Manual) 5 L (25-50) % Monocytes % (Manual) 6 (2-11) % Eosinophils % (Manual) 2 (0-4) % Hypersegmented Neuts Rare H Vacuolated Monocytes Rare Toxic Granulation 1+ slight H Platelet Estimate Adequate Hypochromasia 1+ slight H Macrocytosis 1+ slight H Ovalocytes 1+ slight H Stomatocytes 1+ slight H PT (10.0-12.8) SEC INR (2.0-3.5) POC ABG pH (7.35-7.45) POC ABG pCO2 (35-45) mmHG POC ABG pO2 (80-105) mmHG POC ABG HCO3 (22-26) mmol/L POC ABG Total CO2 (23-27) mmol/L POC ABG O2 Sat (95-98) % POC ABG Base Excess (-2-3) mmol/L O2 Delivery Device Sodium 141 (136-145) mmol/L Potassium 4.1 (3.5-5.1) mmol/L Chloride 98 (98-107) mmol/L Carbon Dioxide 38 H (21-32) mmol/L Anion Gap 9.1 L (10-20) mmol/L BUN 14 (7-18) mg/dL Creatinine 1.1 (0.70-1.30) mg/dL Est Cr Clr Drug Dosing TNP Estimated GFR (MDRD) > 60 Glucose 108 H (74-106) mg/dL Lactic Acid 1.0 (0.4-2.0) mmol/L Calcium 8.7 (8.5-10.1) mg/dL Corrected Calcium 9.82 (8.5-10.1) mg/dL Total Bilirubin 0.7 (0.2-1.0) mg/dL AST 20 (15-37) U/L ALT 14 L (16-63) U/L Alkaline Phosphatase 133 H (46-116) U/L Creatine Kinase 36 L (39-308) U/L Troponin I < 0.017 (<=0.056) ng/mL NT-Pro-B Natriuret Pep 2455 H (<=450) pg/mL Total Protein 6.9 (6.4-8.2) g/dL Albumin 2.6 L (3.4-5.0) g/dL Globulin 4.3 Albumin/Globulin Ratio 0.60 POC Result Comm Urine Color (YELLOW) Urine Appearance (CLEAR) Urine pH (5.0-8.0) Ur Specific [place] Urine Protein (NEGATIVE) mg/dL Urine Glucose (UA) (NEGATIVE) mg/dL Urine Ketones (NEGATIVE) mg/dL Urine Occult Blood (NEGATIVE) Urine Nitrite (NEGATIVE) Urine Bilirubin (NEGATIVE) Urine Urobilinogen (0.2) EU/dL Ur Leukocyte Esterase (NEGATIVE) 04/25/19 04/25/19 04/25/19 Range/Units 08:25 09:50 11:51 WBC (4.0-10.0) x10^3/uL RBC (4.5-6.0) x10^6/uL Hgb (14.0-18.0) g/dL Hct (40.0-52.0) % MCV (78.0-93.0) fL MCH (26.0-32.0) pg MCHC (32.0-36.0) g/dL RDW Coeff of Evan (10.0-15.0) % Plt Count (130-400) x10^3/uL Add Manual Diff Neutrophils % (Manual) (50-80) % Band Neutrophils % (0-6) % Lymphocytes % (Manual) (25-50) % Monocytes % (Manual) (2-11) % Eosinophils % (Manual) (0-4) % Hypersegmented Neuts Vacuolated Monocytes Toxic Granulation Platelet Estimate Hypochromasia Macrocytosis Ovalocytes Stomatocytes PT 24.0 H D (10.0-12.8) SEC INR 2.1 (2.0-3.5) POC ABG pH 7.398 (7.35-7.45) POC ABG pCO2 62 H* (35-45) mmHG POC ABG pO2 55 L* (80-105) mmHG POC ABG HCO3 39 H (22-26) mmol/L POC ABG Total CO2 40 H (23-27) mmol/L POC ABG O2 Sat 87 L (95-98) % POC ABG Base Excess 14 H (-2-3) mmol/L O2 Delivery Device Bipap Sodium (136-145) mmol/L Potassium (3.5-5.1) mmol/L Chloride (98-107) mmol/L Carbon Dioxide (21-32) mmol/L Anion Gap (10-20) mmol/L BUN (7-18) mg/dL Creatinine (0.70-1.30) mg/dL Est Cr Clr Drug Dosing Estimated GFR (MDRD) Glucose (74-106) mg/dL Lactic Acid (0.4-2.0) mmol/L Calcium (8.5-10.1) mg/dL Corrected Calcium (8.5-10.1) mg/dL Total Bilirubin (0.2-1.0) mg/dL AST (15-37) U/L ALT (16-63) U/L Alkaline Phosphatase (46-116) U/L Creatine Kinase (39-308) U/L Troponin I (<=0.056) ng/mL NT-Pro-B Natriuret Pep (<=450) pg/mL Total Protein (6.4-8.2) g/dL Albumin (3.4-5.0) g/dL Globulin Albumin/Globulin Ratio POC Result Comm Called critical res Urine Color Dark yellow H (YELLOW) Urine Appearance Clear (CLEAR) Urine pH 7.0 (5.0-8.0) Ur Specific [place] 1.015 Urine Protein Negative (NEGATIVE) mg/dL Urine Glucose (UA) Negative (NEGATIVE) mg/dL Urine Ketones Negative (NEGATIVE) mg/dL Urine Occult Blood Negative (NEGATIVE) Urine Nitrite Negative (NEGATIVE) Urine Bilirubin Negative (NEGATIVE) Urine Urobilinogen 0.2 (0.2) EU/dL Ur Leukocyte Esterase Negative (NEGATIVE) Result Diagrams: 04/25/19 08:25 04/25/19 08:25 Imaging Impressions Last 24 hrs: CXR: Left long nodule, CHF, [address] Pl effusion, not much changed for March 29. EKG INTERPRETATION Rhythm: A-Fib (no acute changes) Problem List Initiated/Reviewed/Updated: Yes Orders Last 24hrs: Active Orders 24 hr Category Date Time Status Admission Status [Patient Status] [ADT] Routine ADT 04/25/19 10:15 Active Admission Status [Patient Status] [ADT] Routine ADT 04/25/19 12:43 Active Patient Status [ADT] Routine ADT 04/25/19 12:47 Ordered BIPAP Adult [RT BiPAP/CPAP] [RC] ASDIRECTED Care 04/25/19 09:53 Active Bedrest Bathroom Privileges [RC] ASDIRECTED Care 04/25/19 12:47 Ordered Cardiac Monitoring [RC] . DIRECTED Care 04/25/19 12:43 Ordered Communication Order [RC] DAILY Care 04/25/19 11:56 Active Dietary Supplements [RC] BIDMEALS Care 04/25/19 11:54 Active EKG Documentation Completion [RC] STAT Care 04/25/19 08:24 Active Intake and Output [RC] QSHIFT Care 04/25/19 12:51 Ordered Notify Provider Vital Signs [RC] ASDIRECTED Care 04/25/19 12:53 Ordered Oxygen Therapy [RC] PRN Care 04/25/19 12:47 Ordered Oxygen Therapy, ED [RC] ASDIRECTED Care 04/25/19 09:53 Active Pulse Oximetry [RC] CONTINUOUS Care 04/25/19 12:52 Ordered RT Aerosol Therapy [RC] ASDIRECTED Care 04/25/19 08:29 Active RT Aerosol Therapy [RC] ASDIRECTED Care 04/25/19 11:50 Active VTE/DVT Education [RC] PER UNIT ROUTINE Care 04/25/19 12:47 Ordered Vital Signs [RC] CONTINUOUS Care 04/25/19 12:47 Ordered Nothing per Oral Now Diet [DIET] Diet 04/25/19 Lunch Ordered CULTURE BLOOD [BC] Stat Lab 04/25/19 08:25 Received CULTURE BLOOD [BC] Stat Lab 04/25/19 08:52 Received Albuterol/Ipratropium [DuoNeb 3.0-0.5 MG/3 ML] Med 04/25/19 12:00 Active 3 ml NEB Q3HR Furosemide [Lasix] Med 04/25/19 11:45 Ordered 40 mg IV Q8H Hydrocortisone Sod Succinate [Solu-CORTEF] Med 04/25/19 12:00 Active 250 mg IVPUSH Q8H Sodium Chloride 0.9% [Saline Flush] Med 04/25/19 08:24 Active 10 ml FLUSH ASDIRECTED PRN Vancomycin 1,462.83 mg Med 04/25/19 12:00 Pending Sodium Chloride 0.9% [Normal Saline] 250 ml IV Q12H Vancomycin 1,500 mg Med 04/25/19 13:00 Active Sodium Chloride 0.9% [Normal Saline] 500 ml IV ONETIME Blood Culture x2 Reflex Set [OM.PC] Stat Oth 04/25/19 08:24 Ordered Peripheral IV Insertion Adult [OM.PC] Stat Oth 04/25/19 08:24 Ordered Resuscitation Status Routine Resus Stat 04/25/19 12:47 Ordered Medication Orders Albuterol/Ipratropium (Duoneb 3.0-0.5 Mg/3 Ml) 3 ml NEB Q3HR JOE Stop: 04/28/19 23:59 Last Admin: 04/25/19 12:11 Dose: 3 ml Furosemide (Lasix) 40 mg IV Q8H JOE Hydrocortisone Sodium Succinate (Solu-Cortef) 250 mg IVPUSH Q8H JOE Last Admin: 04/25/19 12:11 Dose: 250 mg Vancomycin HCl 1,462.83 mg/ (Sodium Chloride) 250 mls @ 166.667 mls/hr IV Q12H JOE Vancomycin HCl 1,500 mg/ (Sodium Chloride) 500 mls @ 333.333 mls/hr IV ONETIME ONE Stop: 04/25/19 14:29 Sodium Chloride (Saline Flush) 10 ml FLUSH ASDIRECTED PRN PRN Reason: Keep Vein Open Assessment/Plan Comment:: 1. Respiratory failure suspect combination of COPD, CHF and infection. Pt has ELevated CO2 and might end need mech ventilation. [facility] ICU at [facility]. Pt and son in agreement with transfer. In the meantime, treat with lasx, solumedrol, albuterol, vancomycin; acontijne BIPAP 2. PE continue Coumadin 3., A Fib: as heart rate requires 4.Left lung nodule- no evaluation for treatment desired 4. Skin breakdown- needs lotrimin in right groin, desitin on buttock and protective barrier Pt desirese code I .
--- NOTE | 2019-04-25 14:17 | PCM.DCSUM1 ---
Discharge Summary - Hospital Course Free Text/Narrative:: Pt was admitted from ER [facility] a hx of SOB. Accoding mahnaz DOVE P did not wnt to be coded and did not want transfer to [facility]. I spoke with pt about code stautand he stated he wanted to be coded " if it was going to be simple" I stated, there was no way to tell how complicated the situation would become and if there was a successful resuscitation that best he could hope for for return to baseline. Pt wanted us to "try". I spo,me with Pt's son and he asked if resp support were simply a life prolonging measure w/o quality of life and I suggested that in Vew of the acuity of pt;s symnptoms and reversibility of Infection and CHF, he could returm to previous function. The CO2 narcosis is troubling however, and my suggestion was that pt go to a high level of resp care. Pt was reviewd with Dr Jett and he has arranged for a bed on [facility] at [facility], pt and son was informed. Pt received 40 mg lasix IV, 250 mg solumedrol, and he is in the middle of receiving 1500 mg vancomycin IV. He has had 300 cc out and no oral intake; VSS at time of discharge were: 02 sat88; BP 113/96. pulse 92 RR 20 Afebril' Pt is resting but rouses easily and c/o BIPAP - Discharge Data Discharge Date: 04/25/19 Discharge Disposition: DC/Tfer to Acute Hospital 02 Condition: Fair - Discharge Plan *PRESCRIPTION DRUG MONITORING PROGRAM REVIEWED*: Not Applicable *COPY OF PRESCRIPTION DRUG MONITORING REPORT IN PATIENT [place]: Not Applicable Home Medications: Home Meds Albuterol Sulfate [Albuterol Sulfate Hfa] 2 puff IH Q6H PRN 01/11/19 [History] Diltiazem [Cardizem CD] 120 mg PO DAILY 01/11/19 [History] Fluticasone/Salmeterol [Advair 250-50 Diskus] 1 each IH BID 01/11/19 [History] Furosemide [Lasix] 40 mg PO DAILY 01/11/19 [History] Warfarin Sodium [Coumadin] 3.75 mg PO ASDIRECTED 01/11/19 [History] Acetaminophen 500 mg PO Q6H PRN 03/29/19 [History] Metoprolol Tartrate 12.5 mg PO BID 03/29/19 [History] Umeclidinium [place] [Incruse Ellipta*] 1 puff INH DAILY 03/29/19 [History] Warfarin Sodium 2.5 mg PO ASDIRECTED 03/29/19 [History] guaiFENesin [Mucinex] 600 mg PO BID 03/29/19 [History] Multivitamin [Multi-Vitamin Daily] 1 each PO DAILY 04/25/19 [History] Forms: ED Department Discharge Referrals: Jordyn Mcmullen DO [Primary Care Provider] - - Discharge Summary/Plan Comment DC Time >30 min.: Yes - Patient Data Vitals - Most Recent: Last Vital Signs Temp 98 F 04/25/19 13:06 Pulse 74 04/25/19 13:06 Resp 28 H 04/25/19 13:06 BP 93/58 L 04/25/19 13:06 Pulse Ox 97 04/25/19 13:06 Weight - Most Recent: 215 lb I&O - Last 24 hours: Intake & Output 04/24/19 04/25/19 04/25/19 22:59 06:59 14:59 Output Total 300 Balance -300 Lab Results - Last 24 hrs: Laboratory Results - last 24 hr 04/25/19 04/25/19 04/25/19 Range/Units 08:25 08:25 08:25 WBC 15.3 H (4.0-10.0) x10^3/uL RBC 3.93 L (4.5-6.0) x10^6/uL Hgb 11.3 L (14.0-18.0) g/dL Hct 36.9 L (40.0-52.0) % MCV 93.9 H (78.0-93.0) fL MCH 28.8 (26.0-32.0) pg MCHC 30.6 L (32.0-36.0) g/dL RDW Coeff of Evan 14.7 (10.0-15.0) % Plt Count 221 (130-400) x10^3/uL Add Manual Diff Yes Neutrophils % (Manual) 81 H (50-80) % Band Neutrophils % 6 (0-6) % Lymphocytes % (Manual) 5 L (25-50) % Monocytes % (Manual) 6 (2-11) % Eosinophils % (Manual) 2 (0-4) % Hypersegmented Neuts Rare H Vacuolated Monocytes Rare Toxic Granulation 1+ slight H Platelet Estimate Adequate Hypochromasia 1+ slight H Macrocytosis 1+ slight H Ovalocytes 1+ slight H Stomatocytes 1+ slight H PT (10.0-12.8) SEC INR (2.0-3.5) POC ABG pH (7.35-7.45) POC ABG pCO2 (35-45) mmHG POC ABG pO2 (80-105) mmHG POC ABG HCO3 (22-26) mmol/L POC ABG Total CO2 (23-27) mmol/L POC ABG O2 Sat (95-98) % POC ABG Base Excess (-2-3) mmol/L O2 Delivery Device Sodium 141 (136-145) mmol/L Potassium 4.1 (3.5-5.1) mmol/L Chloride 98 (98-107) mmol/L Carbon Dioxide 38 H (21-32) mmol/L Anion Gap 9.1 L (10-20) mmol/L BUN 14 (7-18) mg/dL Creatinine 1.1 (0.70-1.30) mg/dL Est Cr Clr Drug Dosing TNP Estimated GFR (MDRD) > 60 Glucose 108 H (74-106) mg/dL Lactic Acid 1.0 (0.4-2.0) mmol/L Calcium 8.7 (8.5-10.1) mg/dL Corrected Calcium 9.82 (8.5-10.1) mg/dL Total Bilirubin 0.7 (0.2-1.0) mg/dL AST 20 (15-37) U/L ALT 14 L (16-63) U/L Alkaline Phosphatase 133 H (46-116) U/L Creatine Kinase 36 L (39-308) U/L Troponin I < 0.017 (<=0.056) ng/mL NT-Pro-B Natriuret Pep 2455 H (<=450) pg/mL Total Protein 6.9 (6.4-8.2) g/dL Albumin 2.6 L (3.4-5.0) g/dL Globulin 4.3 Albumin/Globulin Ratio 0.60 POC Result Comm Urine Color (YELLOW) Urine Appearance (CLEAR) Urine pH (5.0-8.0) Ur Specific [place] Urine Protein (NEGATIVE) mg/dL Urine Glucose (UA) (NEGATIVE) mg/dL Urine Ketones (NEGATIVE) mg/dL Urine Occult Blood (NEGATIVE) Urine Nitrite (NEGATIVE) Urine Bilirubin (NEGATIVE) Urine Urobilinogen (0.2) EU/dL Ur Leukocyte Esterase (NEGATIVE) 04/25/19 04/25/19 04/25/19 Range/Units 08:25 09:50 11:51 WBC (4.0-10.0) x10^3/uL RBC (4.5-6.0) x10^6/uL Hgb (14.0-18.0) g/dL Hct (40.0-52.0) % MCV (78.0-93.0) fL MCH (26.0-32.0) pg MCHC (32.0-36.0) g/dL RDW Coeff of Evan (10.0-15.0) % Plt Count (130-400) x10^3/uL Add Manual Diff Neutrophils % (Manual) (50-80) % Band Neutrophils % (0-6) % Lymphocytes % (Manual) (25-50) % Monocytes % (Manual) (2-11) % Eosinophils % (Manual) (0-4) % Hypersegmented Neuts Vacuolated Monocytes Toxic Granulation Platelet Estimate Hypochromasia Macrocytosis Ovalocytes Stomatocytes PT 24.0 H D (10.0-12.8) SEC INR 2.1 (2.0-3.5) POC ABG pH 7.398 (7.35-7.45) POC ABG pCO2 62 H* (35-45) mmHG POC ABG pO2 55 L* (80-105) mmHG POC ABG HCO3 39 H (22-26) mmol/L POC ABG Total CO2 40 H (23-27) mmol/L POC ABG O2 Sat 87 L (95-98) % POC ABG Base Excess 14 H (-2-3) mmol/L O2 Delivery Device Bipap Sodium (136-145) mmol/L Potassium (3.5-5.1) mmol/L Chloride (98-107) mmol/L Carbon Dioxide (21-32) mmol/L Anion Gap (10-20) mmol/L BUN (7-18) mg/dL Creatinine (0.70-1.30) mg/dL Est Cr Clr Drug Dosing Estimated GFR (MDRD) Glucose (74-106) mg/dL Lactic Acid (0.4-2.0) mmol/L Calcium (8.5-10.1) mg/dL Corrected Calcium (8.5-10.1) mg/dL Total Bilirubin (0.2-1.0) mg/dL AST (15-37) U/L ALT (16-63) U/L Alkaline Phosphatase (46-116) U/L Creatine Kinase (39-308) U/L Troponin I (<=0.056) ng/mL NT-Pro-B Natriuret Pep (<=450) pg/mL Total Protein (6.4-8.2) g/dL Albumin (3.4-5.0) g/dL Globulin Albumin/Globulin Ratio POC Result Comm Called critical res Urine Color Dark yellow H (YELLOW) Urine Appearance Clear (CLEAR) Urine pH 7.0 (5.0-8.0) Ur Specific [place] 1.015 Urine Protein Negative (NEGATIVE) mg/dL Urine Glucose (UA) Negative (NEGATIVE) mg/dL Urine Ketones Negative (NEGATIVE) mg/dL Urine Occult Blood Negative (NEGATIVE) Urine Nitrite Negative (NEGATIVE) Urine Bilirubin Negative (NEGATIVE) Urine Urobilinogen 0.2 (0.2) EU/dL Ur Leukocyte Esterase Negative (NEGATIVE) Med Orders - Current: Current Medications Albuterol/Ipratropium (Duoneb 3.0-0.5 Mg/3 Ml) 3 ml NEB Q3HR JOE Stop: 04/28/19 23:59 Last Admin: 04/25/19 12:11 Dose: 3 ml Furosemide (Lasix) 40 mg IV Q8H JOE Hydrocortisone Sodium Succinate (Solu-Cortef) 250 mg IVPUSH Q8H JOE Last Admin: 04/25/19 12:11 Dose: 250 mg Vancomycin HCl 1,462.83 mg/ (Sodium Chloride) 250 mls @ 166.667 mls/hr IV Q12H JOE Vancomycin HCl 1,500 mg/ (Sodium Chloride) 250 mls @ 166.667 mls/hr IV ONETIME ONE Stop: 04/25/19 14:44 Last Admin: 04/25/19 13:20 Dose: 166.667 mls/hr Sodium Chloride (Saline Flush) 10 ml FLUSH ASDIRECTED PRN PRN Reason: Keep Vein Open Discontinued Medications Albuterol/Ipratropium (Duoneb 3.0-0.5 Mg/3 Ml) 3 ml NEB ONETIME ONE Stop: 04/25/19 08:28 Last Admin: 04/25/19 09:07 Dose: 3 ml Ceftriaxone Sodium (Rocephin) 1 gm IVPUSH ONETIME ONE Stop: 04/25/19 08:26 Last Admin: 04/25/19 09:07 Dose: 1 gm Furosemide (Lasix) 40 mg IV ONETIME ONE Stop: 04/25/19 08:32 Last Admin: 04/25/19 09:03 Dose: 40 mg Furosemide (Lasix) 40 mg IV ONETIME ONE Stop: 04/25/19 12:46 Last Admin: 04/25/19 13:19 Dose: 40 mg Vancomycin HCl 1,500 mg/ (Sodium Chloride) 250 mls @ 166.667 mls/hr IV ONETIME ONE Stop: 04/25/19 14:29 Vancomycin HCl 1,500 mg/ (Sodium Chloride) 500 mls @ 333.333 mls/hr IV ONETIME ONE Stop: 04/25/19 14:29 Last Admin: 04/25/19 13:35 Dose: Not Given
== END 2019-04-25 15:15 | disposition short-term general hospital (02) | DRG 871 ==
LOC: VM.ED 08:14 → VM.MS 10:15
PROVIDERS: ADMIT Internal Medicine; ATTEND Family Medicine
DX: A41.9 Sepsis, unspecified organism (principal); J96.01 Acute respiratory failure with hypoxia; J96.02 Acute respiratory failure with hypercapnia; I48.91 Unspecified atrial fibrillation; J43.9 Emphysema, unspecified; I50.9 Heart failure, unspecified; Z86.711 Personal history of pulmonary embolism; R91.1 Solitary pulmonary nodule; Z87.891 Personal history of nicotine dependence; F41.9 Anxiety disorder, unspecified; Z79.01 Long term (current) use of anticoagulants; Z99.81 Dependence on supplemental oxygen; Z79.899 Other long term (current) drug therapy; R06.02 Shortness of breath
CPT/HCPCS: 36415; 71045; 80053; 81003; 82550; 83605; 83880; 84484; 85025; 85610; 87040 ×2; 87077; 87181; 87184; 93005; 94640; 94660; 96374; 96375; 99284; 99285; J0696; J1940; 36600; 82803; 87186; J1720; J3370; J7050; J7620-GY

== ENCOUNTER 2019-07-01 09:03 | Emergency (ER) | payer MEDICARE, OTHER, MEDICAID ==
[2019-07-01] MEDS ORDERED: Sodium Chloride 0.9% 10 ML Syringe FLUSH PRN (09:11)
[2019-07-01] MEDS ORDERED: Furosemide 40 MG/4 ML VIAL IV ONE (09:11)
--- NOTE | 2019-07-01 09:36 | EDM.PDOC ---
ED HPI GENERAL MEDICAL PROBLEM - General Time Seen by Provider: 07/01/19 09:03 Source of Information: Reports: Patient, EMS History Limitations: Reports: No Limitations - History of Present Illness INITIAL COMMENTS - FREE TEXT/NARRATIVE: Pt. is a resident at [facility]. On rounds this AM, pt. was found to be hypoxic with an O2 sat of 72%. He is on home O2 at 4L/min. Pt. offered no complaint. He has chronic shortness of breath due to diastolic heart failure, COPD, pulmonary fibrosis, pulmonary hypertension and presumed lung cancer. He was seen by Dr. Espinoza, pulmonology at [place] on 06/16. Pt. had deferred having any radiation or other therapy for the lung cancer due to his poor functional status. Decision was made to go with palliative care at this time. He has been afebrile. No productive cough. He states that he feels no differently than he normally does. Pt. has a history of recurrent pneumothorax. Pt. states that, overall, he is feeling no worse than he normally does; he was sent to ER due to his decreased O2 saturation. Onset Date: 07/01/19 Location: Reports: Chest, Generalized Improves with: Reports: Rest Worsens with: Reports: Movement Associated Symptoms: Reports: Shortness of Breath. Denies: Confusion, Chest Pain, Cough, Diaphoresis, Fever/Chills - Related Data Allergies Allergy/AdvReac Type Severity Reaction Status Date / Time No Known Allergies Allergy Verified 04/25/19 10:07 Home Meds: Home Meds Albuterol Sulfate [Albuterol Sulfate Hfa] 2 puff IH Q6H PRN 01/11/19 [History] Diltiazem [Cardizem CD] 120 mg PO DAILY 01/11/19 [History] Fluticasone/Salmeterol [Advair 250-50 Diskus] 1 each IH BID 01/11/19 [History] Furosemide [Lasix] 40 mg PO DAILY 01/11/19 [History] Warfarin Sodium [Coumadin] 3.75 mg PO ASDIRECTED 01/11/19 [History] Acetaminophen 500 mg PO Q6H PRN 03/29/19 [History] Metoprolol Tartrate 12.5 mg PO BID 03/29/19 [History] Umeclidinium [place] [Incruse Ellipta*] 1 puff INH DAILY 03/29/19 [History] Warfarin Sodium 2.5 mg PO ASDIRECTED 03/29/19 [History] guaiFENesin [Mucinex] 600 mg PO BID 03/29/19 [History] Multivitamin [Multi-Vitamin Daily] 1 each PO DAILY 04/25/19 [History] Past Medical History Cardiovascular History: Reports: Afib, SOB on Exertion Other Cardiovascular History: Edema Respiratory History: Reports: COPD, SOB Other Respiratory History: Emphysema; Antiphospholipid; Pulmonary Embolism without Acute Cor Pulmonale; Solitary Pulmonary Nodule. Oxygen dependent with a nasal canula at 4L Gastrointestinal History: Reports: Other (See Below) Other Gastrointestinal History: Activated Protein C Resistance Other Musculoskeletal History: Generalized Weakness Psychiatric History: Reports: Anxiety - Infectious Disease History Infectious Disease History: Reports: MRSA Social & Family History - Family History Family Medical History: Unobtainable - Caffeine Use Caffeine Use: Reports: Coffee ED ROS GENERAL - Review of Systems Review Of Systems: See Below Constitutional: Reports: No Symptoms HEENT: Reports: No Symptoms Respiratory: Reports: Shortness of Breath (chronic in nature, worse with activity.) ED EXAM, GENERAL - Physical Exam Exam: See Below Exam Limited By: No Limitations General Appearance: Alert, Lethargic, Moderate Distress Eye Exam: Bilateral Eye: EOMI, PERRL Ears: Normal External Exam, Normal Canal Nose: Normal Inspection, Normal Mucosa, No Blood Throat/Mouth: Normal Inspection, Normal Lips, Normal Teeth, Normal Gums, Normal Oropharynx Head: Atraumatic, Normocephalic Neck: Normal Inspection, Supple, Non-Tender Respiratory/Chest: Decreased Breath Sounds, Crackles, Rales, Wheezing, Accessory Muscle Use, Prolonged Expiration Cardiovascular: Normal Peripheral Pulses, Regular Rate, Rhythm, No Gallop, Other (significant edema to arms, legs and trunk.) Peripheral Pulses: 4+: Femoral (L) GI/Abdominal: Normal Bowel Sounds, Soft, Non-Tender, No Mass (Male) Exam: Deferred Rectal (Males) Exam: Deferred Back Exam: Normal Inspection, Full Range of Motion Extremities: Normal Inspection, Normal Range of Motion, Non-Tender Neurological: Alert, Oriented, CN II-XII Intact, Normal Cognition, Normal Gait, Normal Reflexes, No Motor/Sensory Deficits Psychiatric: Normal Affect, Normal Mood Skin Exam: Warm, Dry, Intact, Normal Color, No Rash Lymphatic: No Adenopathy Course - Vital Signs Last Recorded V/S: Last Vital Signs Temp 37.1 C 07/01/19 10:33 Pulse 108 H 07/01/19 10:33 Resp 28 H 07/01/19 10:33 BP 106/46 L 07/01/19 10:33 Pulse Ox 86 L 07/01/19 10:33 - Orders/Labs/Meds Orders: Active Orders 24 hr Category Date Time Status EKG Documentation Completion [RC] STAT Care 07/01/19 09:12 Active CULTURE BLOOD [BC] Stat Lab 07/01/19 09:31 Received CULTURE BLOOD [BC] Stat Lab 07/01/19 09:38 Received Sodium Chloride 0.9% [Saline Flush] Med 07/01/19 09:11 Active 10 ml FLUSH ASDIRECTED PRN Blood Culture x2 Reflex Set [OM.PC] Stat Oth 07/01/19 09:13 Ordered Peripheral IV Insertion Adult [OM.PC] Routine Oth 07/01/19 09:12 Ordered Medication Orders Sodium Chloride (Saline Flush) 10 ml FLUSH ASDIRECTED PRN PRN Reason: Keep Vein Open Labs: Laboratory Tests 07/01/19 07/01/19 07/01/19 Range/Units 09:31 09:31 09:31 WBC 34.7 H* (4.0-10.0) x10^3/uL RBC 4.04 L (4.5-6.0) x10^6/uL Hgb 11.5 L (14.0-18.0) g/dL Hct 37.9 L (40.0-52.0) % MCV 93.8 H (78.0-93.0) fL MCH 28.5 (26.0-32.0) pg MCHC 30.3 L (32.0-36.0) g/dL RDW Coeff of Evan 16.3 H (10.0-15.0) % Plt Count 287 (130-400) x10^3/uL Add Manual Diff Yes Neutrophils % (Manual) 87 H (50-80) % Band Neutrophils % 4 (0-6) % Lymphocytes % (Manual) 7 L (25-50) % Monocytes % (Manual) 2 (2-11) % Platelet Estimate Adequate Hypochromasia 1+ slight H Anisocytosis 1+ slight H PT 15.5 H D (10.0-12.8) SEC INR 1.4 L (2.0-3.5) POC ABG pH (7.35-7.45) POC ABG pCO2 (35-45) mmHG POC ABG pO2 (80-105) mmHG POC ABG HCO3 (22-26) mmol/L POC ABG Total CO2 (23-27) mmol/L POC ABG O2 Sat (95-98) % POC ABG Base Excess (-2-3) mmol/L POC FiO2 Sodium 143 (69-191) mmol/L Potassium 4.4 (1.5-9.9) mmol/L Chloride 100 (54-184) mmol/L Carbon Dioxide 39 H (21-32) mmol/L Anion Gap 8.4 L (10-20) mmol/L BUN 30 H (7-18) mg/dL Creatinine 1.3 (0.70-1.30) mg/dL Est Cr Clr Drug Dosing TNP Estimated GFR (MDRD) 53 Glucose 129 H (74-106) mg/dL Lactic Acid (0.4-2.0) mmol/L Calcium 8.9 (8.5-10.1) mg/dL Corrected Calcium 10.26 H (8.5-10.1) mg/dL Magnesium 1.8 (1.8-2.4) mg/dL Total Bilirubin 0.9 (0.2-1.0) mg/dL AST 28 (15-37) U/L ALT 60 (16-63) U/L Alkaline Phosphatase 245 H (46-116) U/L Troponin I < 0.017 (<=0.056) ng/mL C-Reactive Protein 13.1 H (<=0.9) mg/dL NT-Pro-B Natriuret Pep 6227 H (<=450) pg/mL Total Protein 6.7 (6.4-8.2) g/dL Albumin 2.3 L (3.4-5.0) g/dL Globulin 4.4 Albumin/Globulin Ratio 0.52 POC Result Comm 07/01/19 07/01/19 Range/Units 09:31 09:48 WBC (4.0-10.0) x10^3/uL RBC (4.5-6.0) x10^6/uL Hgb (14.0-18.0) g/dL Hct (40.0-52.0) % MCV (78.0-93.0) fL MCH (26.0-32.0) pg MCHC (32.0-36.0) g/dL RDW Coeff of Evan (10.0-15.0) % Plt Count (130-400) x10^3/uL Add Manual Diff Neutrophils % (Manual) (50-80) % Band Neutrophils % (0-6) % Lymphocytes % (Manual) (25-50) % Monocytes % (Manual) (2-11) % Platelet Estimate Hypochromasia Anisocytosis PT (10.0-12.8) SEC INR (2.0-3.5) POC ABG pH 7.352 (7.35-7.45) POC ABG pCO2 70 H* (35-45) mmHG POC ABG pO2 54 L* (80-105) mmHG POC ABG HCO3 39 H (22-26) mmol/L POC ABG Total CO2 41 H (23-27) mmol/L POC ABG O2 Sat 84 L (95-98) % POC ABG Base Excess 13 H (-2-3) mmol/L POC FiO2 0.36 Sodium (69-191) mmol/L Potassium (1.5-9.9) mmol/L Chloride (54-184) mmol/L Carbon Dioxide (21-32) mmol/L Anion Gap (10-20) mmol/L BUN (7-18) mg/dL Creatinine (0.70-1.30) mg/dL Est Cr Clr Drug Dosing Estimated GFR (MDRD) Glucose (74-106) mg/dL Lactic Acid 1.6 (0.4-2.0) mmol/L Calcium (8.5-10.1) mg/dL Corrected Calcium (8.5-10.1) mg/dL Magnesium (1.8-2.4) mg/dL Total Bilirubin (0.2-1.0) mg/dL AST (15-37) U/L ALT (16-63) U/L Alkaline Phosphatase (46-116) U/L Troponin I (<=0.056) ng/mL C-Reactive Protein (<=0.9) mg/dL NT-Pro-B Natriuret Pep (<=450) pg/mL Total Protein (6.4-8.2) g/dL Albumin (3.4-5.0) g/dL Globulin Albumin/Globulin Ratio POC Result Comm Called critical res Meds: Medications Generic Name Dose Route Start Last Admin Trade Name Freq PRN Reason Stop Dose Admin Sodium Chloride 10 ml 07/01/19 09:11 Saline Flush FLUSH ASDIRECTED PRN Keep Vein Open Discontinued Medications Generic Name Dose Route Start Last Admin Trade Name Freq PRN Reason Stop Dose Admin Furosemide 60 mg 07/01/19 09:11 07/01/19 09:32 Lasix IV 07/01/19 09:12 60 mg ONETIME ONE Administration Methylprednisolone Sodium Succinate 125 mg 07/01/19 10:32 07/01/19 10:57 Solu-Medrol IV 07/01/19 10:33 125 mg ONETIME ONE Administration - Radiology Interpretation Free Text/Narrative:: Small bilateral pleural effusions, cardiomegaly, presence of lung mass, unchanged from previous. - Re-Assessments/Exams Free Text/Narrative Re-Assessment/Exam: Pt. was given solu medrol 125mg IV. He was given lasix 60mg IV. Again, he reported that he did not feel any worse than normal. Chest x-ray did not reveal any acute infiltrate. Departure - Departure Time of Disposition: 11:18 Disposition: DC/Tfer to SNF 03 Condition: Poor Clinical Impression: COPD (chronic obstructive pulmonary disease), Hypoxemia CHF (congestive heart failure) Qualifiers: Heart failure type: unspecified Heart failure chronicity: acute Qualified Code( s): I50.9 - Heart failure, unspecified Respiratory failure Qualifiers: Chronicity: acute Respiratory failure complication: hypoxia and hypercapnia Qualified Code(s): J96.01 - Acute respiratory failure with hypoxia - Discharge Information Instructions: Chronic Obstructive Pulmonary Disease, Heart Failure Referrals: PCP,Not In Area [Primary Care Provider] - Forms: ED Department Discharge Additional Instructions: I spoke at length with patient and family. Patient is now going to be code 3. [facility] and his PCP were contacted and will be in contact with [facility]-way staff and family sometime today. He wishes to be transported back to [facility]-way. There was no obvious pneumonia. He was given IV solu medrol and lasix. - My Orders Last 24 Hours: My Active Orders 07/01/19 09:11 Sodium Chloride 0.9% [Saline Flush] 10 ml FLUSH ASDIRECTED PRN 07/01/19 09:12 EKG Documentation Completion [RC] STAT Peripheral IV Insertion Adult [OM.PC] Routine 07/01/19 09:13 Blood Culture x2 Reflex Set [OM.PC] Stat 07/01/19 09:31 CULTURE BLOOD [BC] Stat 07/01/19 09:38 CULTURE BLOOD [BC] Stat - Assessment/Plan Last 24 Hours: My Active Orders 07/01/19 09:11 Sodium Chloride 0.9% [Saline Flush] 10 ml FLUSH ASDIRECTED PRN 07/01/19 09:12 EKG Documentation Completion [RC] STAT Peripheral IV Insertion Adult [OM.PC] Routine 07/01/19 09:13 Blood Culture x2 Reflex Set [OM.PC] Stat 07/01/19 09:31 CULTURE BLOOD [BC] Stat 07/01/19 09:38 CULTURE BLOOD [BC] Stat Plan: Pt. will be transferred back to [facility]. I spoke at length with patient and family about prognosis, explained code status, etc. Patient wishes for no intubation or CPR. Son is in agreement. Son requests referral from [facility]. Pt. was transported to [facility] via ambulance. All questions were answered.
--- NOTE | 2019-07-01 10:16 | CR ---
[id number] RAD/RAD Chest PA or AP 1V EXAM: RAD Chest PA or AP 1V INDICATION: DYSPNEA. COMPARISON: April 25, 2019. DISCUSSION: Cardiomegaly, similar to prior examination. Again seen is a left lung apex/paramediastinal mass, unchanged the prior examination as well. Small bilateral pleural effusions are again seen with bibasal parenchymal opacities. Overall, no significant change in appearance of the chest compared to April 25, 2019. IMPRESSION: As above. Bennie Buchanan MD 07/01/19 1013 Thank you for allowing us to participate in the care of your patient.
[2019-07-01 10:17] LABS: CHLORIDE,CL 100 mmol/L (54-184); SODIUM,NA 143 mmol/L (69-191)
[2019-07-01 10:18] LABS: ANION GAP 8.4 mmol/L (10-20)
[2019-07-01] MEDS ORDERED: methylPREDNISolone Sodium Succinate 125 MG/2 ML SDV IV ONE (10:32)
== END 2019-07-01 11:03 ==
LOC: VM.ED 09:03
DX: J96.01 Acute respiratory failure with hypoxia (principal); J44.9 Chronic obstructive pulmonary disease, unspecified; I50.9 Heart failure, unspecified; C34.90 Malignant neoplasm of unspecified part of unspecified bronchus or lung; F41.9 Anxiety disorder, unspecified; Z79.899 Other long term (current) drug therapy; Z79.01 Long term (current) use of anticoagulants
CPT/HCPCS: 36415; 36600; 71045; 80053; 82803; 83605; 83735; 83880; 84484; 85025; 85610; 86140; 87040; 93005; 96374; 96375; 99284; 99285; J1940; J2930